=== PATIENT | male | born 1975 | race Hispanic/Latino ===

== ENCOUNTER 2021-07-15 11:03 | Emergency (ER) | payer OTHER ==
[~2021-07-15] VITALS: Ht 190.5 cm; Wt 93.0 kg
[2021-07-15 11:03] VITALS: TEMP 98
[2021-07-15 11:56] LABS: PLATELET COUNT 265 K/uL (142-355)
[2021-07-15 12:12] LABS: POTASSIUM 3.7 mmol/L (3.6-5.2); SODIUM 134 mmol/L (136-145)
[2021-07-15 14:00] VITALS: BP 138/87
== END 2021-07-15 14:12 ==
LOC: ED 11:03
PROVIDERS: Emergency Medicine Emergency Medical Services
DX: U07.1 COVID-19 (principal)
CPT/HCPCS: 36600; 80053; 82805; 83605; 84484; 85027; 87040; 93005; 96360; 96374; 96375; 99284; J2930

== ENCOUNTER 2021-07-17 13:43 | Emergency (ER) | payer OTHER ==
[~2021-07-17] VITALS: Ht 190.5 cm; Wt 106.6 kg
[2021-07-17 15:58] LABS: PLATELET COUNT 352 K/uL (142-355)
[2021-07-17 16:12] LABS: SODIUM 141 mmol/L (136-145)
[2021-07-17 16:25] LABS: PARTIAL THROMBOPLASTIN TIME 23.6 SECONDS (24.5-33.6)
[2021-07-17 17:45] VITALS: BP 116/80; TEMP 98
== END 2021-07-17 17:45 ==
LOC: ED 13:43
PROVIDERS: Hospitalist
DX: U07.1 COVID-19 (principal); J12.82 Pneumonia due to coronavirus disease 2019
CPT/HCPCS: 36415; 80053; 82550; 82553; 83880; 84484; 85027; 85610; 85730; 93005; 96374; 99284; J1100

== ENCOUNTER 2021-07-20 08:10 | Emergency (ER) | payer OTHER ==
[~2021-07-20] VITALS: Ht 190.5 cm; Wt 106.6 kg
[2021-07-20 08:10] VITALS: TEMP 98.9
[2021-07-20 12:30] VITALS: BP 137/95
== END 2021-07-20 12:30 ==
LOC: ED 08:25
DX: R06.09 Other forms of dyspnea (principal); U07.1 COVID-19
CPT/HCPCS: 99282